=== PATIENT | male | born 1975 | race Caucasian/White ===

== ENCOUNTER → 2019-04-26 | Outpatient (CLI) | payer OTHER ==
[~2019-04-26] MED LIST: PHEN-640 PO; SULF1TAB35 PO; TAMS0.4C98 PO
--- NOTE | 2019-04-26 15:05 | Diagnostic Imaging Report ---
INDICATION: Left UVJ stone. TIME OF EXAM: 02:10 p.m. COMPARISON: No prior studies are available for comparison. FINDINGS: Bowel gas pattern is unremarkable. There is a left pelvic calcification in the distribution of the distal left ureter. No other radiopaque urinary tract calculi are seen. IMPRESSION: Left pelvic calcification, suspicious for distal left ureteral calculus. No other abnormality is detected. Dictated by: Dictated on workstation # [id number]
== END ==
LOC: RAD 13:53
PROVIDERS: ATTEND Urology
DX: N20.1 Calculus of ureter (principal)
CPT/HCPCS: 74018

== ENCOUNTER 2019-04-30 06:28 | Outpatient (CLI) | payer OTHER ==
[~2019-04-30] VITALS: Ht 187.9 cm; Wt 113.5 kg
[2019-04-30] MEDS ORDERED: TAMS0.4C98 PO (09:21)
[2019-05-01] MEDS ORDERED: SULF1TAB35 PO (10:31)
[2019-05-01] MEDS ORDERED: PHEN-640 PO (10:31)
== END 2019-04-30 09:29 | disposition home or self-care (01) ==
LOC: PREOP 06:28
PROVIDERS: ATTEND Urology
DX: Z01.818 Encounter for other preprocedural examination (principal)

== ENCOUNTER 2019-05-01 08:04 | Day surgery (SDC) | payer OTHER ==
[~2019-05-01] VITALS: Ht 188 cm; Wt 113.5 kg
[2019-05-01] VITALS (10 sets, daily range): BP systolic 122–137; BP diastolic 74–104
[~2019-05-01 08:04] MED LIST changes: -PHEN-640 PO; -SULF1TAB35 PO
[2019-05-01] MEDS ORDERED: cefTRIAXone FOR IV USE 1,000 MG in WATER (STERILE) FOR INJECTION 10 ML IV ONE (08:15)
[2019-05-01] MEDS ORDERED: LACTATED RINGERS 1,000 ML IV PRN (08:15)
[2019-05-01] MEDS ORDERED: LIDOCAINE PF 2% 5 ML (XYLOCAINE) VIAL ONE (08:35)
[2019-05-01] MEDS ORDERED: proPOfol 200 MG/20 ML (DIPRIVAN) VIAL IV ONE (08:35)
[2019-05-01] MEDS ORDERED: fentaNYL INJECTION 100 MCG/2 ML AMP ONE (08:36)
[2019-05-01] MEDS ORDERED: MIDAZOLAM 2 MG/2 ML (VERSED) VIAL ONE (08:36)
[2019-05-01] MEDS ORDERED: SEVOFLURANE (ULTANE) 15 ML INHAL SOLN ONE ×3 (08:37→09:29)
[2019-05-01] MEDS ORDERED: ONDANSETRON 4 MG/2 ML (SDV) Z0FRAN ONE (08:37)
[2019-05-01] MEDS ORDERED: DEXAMETHASONE 10 MG/ML (DECADRON) 1 ML VIAL ONE (08:37)
--- NOTE | 2019-05-01 08:46 | Progress Note-Pre Operative ---
Pre-Operative Progress Note H&P Reviewed The H&P was reviewed, patient examined and no changes noted. Date Seen by Provider: May 01, 2019 Time Seen by Provider: 08:45 Date H&P Reviewed: May 01, 2019 Time H&P Reviewed: 08:46 Pre-Operative Diagnosis: LT DISTAL URETERAL STONE FAM CABALLERO MD May 01, 2019 08:46
--- NOTE | 2019-05-01 09:02 | Diagnostic Imaging Report ---
INDICATION: Preop left ureteral stone Abdominal films obtained at 8:34 a.m. and compared to 04/26/19. The abdominal bowel gas pattern is unremarkable. There is no sign of obstruction or ileus. Small calcification overlying the pelvis on the left side is unchanged in position compared to the prior study and could be either a ureteral stone or phlebolith. Small calcification in the right lateral pelvis is also noted and unchanged with same differential. Bony structures appear unremarkable. IMPRESSION: Unremarkable bowel gas pattern. Small calcification overlying left pelvis, may be either distal ureteral stone or phlebolith. Consider correlation with CT if clinically warranted. There is also a calcification in the lateral portion of the right hemipelvis which may be a phlebolith or stone. Dictated by: Dictated on workstation # [id number]
--- NOTE | 2019-05-01 10:05 | Progress Note-Post Operative ---
Post-Operative Progess Note Surgeon (s)/[employer] W[employer] Consultant (s) Surgeon FAM CABALLERO MD [employer] W[employer] Consultant: NONE Pre-Operative Diagnosis LT DISTAL URETERAL STONE Post-Operative Diagnosis SAME Procedure & Operative Findings Date of Procedure 05/01/19 Procedure Performed/Findings LT URETEROSCOPY WITH STONE BASKET Anesthesia Type GENERAL Estimated Blood Loss Estimated blood loss (mL): NONE Specimens/Packing Specimens Removed STONE FOR ANALYSIS Packing: NONE FAM CABALLERO MD May 01, 2019 10:05
--- NOTE | 2019-05-01 10:06 | Discharge Inst-Urology ---
Discharge Inst-Urology Reconcile Patient Problems Problems Reviewed?: Yes Patient Instructions/Follow Up Plan/Assessment/Instructions Please make appointment to been seen in office in 2 weeks. Increase oral fluids for 48 hours and then as needed. Diet and Activity as tolerated. If questions or concerns contact your physician Or seek help at emergency department. FAM CABALLERO MD May 01, 2019 10:06
--- NOTE | 2019-05-01 10:10 | Anesthesia-General Post-Op ---
General Patient Condition Mental Status/LOC: Same as Preop Cardiovascular: Satisfactory Nausea/Vomiting: Absent Respiratory: Satisfactory Pain: Controlled Complications: Absent Post Op Complications Complications None Follow Up Care/Instructions Patient Instructions None needed. Anesthesia/Patient Condition Patient Condition Patient is doing well, no complaints, stable vital signs, no apparent adverse anesthesia problems. No complications reported per nursing. OSCAR BARAHONA CRNA May 01, 2019 10:10
[2019-05-01] MEDS ORDERED: PHEN-640 PO (10:31)
[2019-05-01] MEDS ORDERED: SULF1TAB35 PO (10:31)
--- NOTE | 2019-05-01 14:35 | OPERATIVE REPORT ---
DATE OF SERVICE: 05/01/2019 PREOPERATIVE DIAGNOSIS: Left distal ureteral stone. POSTOPERATIVE DIAGNOSIS: Left distal ureteral stone. OPERATION PERFORMED: Left ureteroscopy with stone basket. SURGEON: Freeman Caballero MD ANESTHESIA: General. COMPLICATIONS: None. DESCRIPTION OF PROCEDURE: Under satisfactory general anesthesia, the patient in lithotomy position, genitalia were prepped and draped in the usual sterile fashion. Cystoscope was introduced under vision. The prostate was nonobstructing. Bladder neck was open. Bladder revealed mild trabeculations. Ureteric orifices normal with clear efflux, sluggish on the left side. Using the foroblique lens, I dilated the left ureteral orifice intramural portion to the level of the stone, which was felt to be disimpacted from the dilatation to accommodate a 6.9 Y[place]ut semi-rigid ureteroscope. I visualized the stone that was floating, so I engaged it with a 3-Yakut Resendiz basket under vision and extracted it completely. I went back with the cystoscope to empty the bladder. The patient tolerated the procedure and anesthesia well and was sent to recovery room in stable condition. Job ID: [id number] DocumentID: [id number] Dictated Date: 05/01/2019 09:53:28 Porcelain Finish Sprayer Date: 05/01/2019 14:34:10 Dictated By: FREEMAN CABALLERO MD
== END 2019-05-01 11:50 | disposition home or self-care (01) ==
LOC: SDC 08:04
PROVIDERS: ATTEND Urology
DX: N20.1 Calculus of ureter (principal); Z79.899 Other long term (current) drug therapy
CPT/HCPCS: 74018; 87081; 88300

== ENCOUNTER 2019-05-17 09:33 | Outpatient (RCR) | payer OTHER ==
[~2019-05-17 09:33] MED LIST changes: +PHEN-640 PO; +SULF1TAB35 PO
== END 2019-08-13 | disposition home or self-care (01) ==
LOC: EDSTATUS 09:33 → LAB 09:33
PROVIDERS: ATTEND Urology
DX: N20.0 Calculus of kidney (principal)
CPT/HCPCS: 36415; 82140; 82340; 82507; 82570; 83735; 83945; 83986; 84105; 84133; 84300; 84392; 84560

== ENCOUNTER → 2020-02-14 | Outpatient (CLI) | payer OTHER ==
[~2020-02-14] MED LIST changes: -TAMS0.4C98 PO; +TMSL.4C PO
--- NOTE | 2020-02-14 12:19 | Diagnostic Imaging Report ---
INDICATION: History kidney stones COMPARISON: 05/01/2019 FINDINGS: 2 supine and upright radiograph views of the abdomen were obtained and demonstrate nonobstructive small bowel gas pattern. Mild amount of air and stool are seen scattered throughout the colon. No large collection of free peritoneal air is seen. No new abnormal extraosseous calcifications or radiopaque foreign bodies are identified. Bony structures are age-appropriate. IMPRESSION: 1. Nonobstructive small bowel gas pattern. Dictated by: Dictated on workstation # [id number]
== END ==
LOC: RAD 11:11
PROVIDERS: ATTEND Urology
DX: N20.0 Calculus of kidney (principal)
CPT/HCPCS: 74018